=== PATIENT | female | born 1955 | race Caucasian/White ===

== ENCOUNTER 2016-09-14 17:12 | Emergency (ER) | payer MEDICARE, OTHER ==
--- NOTE | ~2016-09-14 | CR63 ---
[facility] A Service [facility] RADIOLOGY TEXT RESULTS PATIENT: STEPHENIE POLLARD LOCATION: SED : 55 UNIT #: [id number] AGE: [address]: Abdullahi Perez MD SEX: F ORDER DR: [id number] [place] [address] [id number] E MR#: [id number] Acc #: [id number] NAME: STEPHENIE POLLARD : 1955 SEX: F STUDY DATE/TIME: 09/14/2016 18:27 UNIT: SED ROOM: STUDY DESCRIPTION: CR Chest 2 View Attending Physician: Abdullahi Perez M.D. Ordering Physician: Abdullahi Perez M.D. Primary Care Physician: Earnest Alvares M.D. MEDICAL IMAGING REPORT This report is preliminary unless electronic signature is present. EXAM 2 views of the chest COMPARISON June 02, 2015 and June 23, 2014 as well as September 23, 2013. INDICATION 61-year-old female with dyspnea for 2 weeks. Diffuse swelling for 2 weeks. FINDINGS Surgical clips are again noted in the AP window. There is mild cardiomegaly. Multilevel anterior osteophyte formation of the thoracic spine. No pleural effusion or pneumothorax. There is diffuse pulmonary vascular congestion with grossly stable band-like opacity in the right lung base when allowing for differences in lung volumes. IMPRESSION 1. Cardiomegaly with mildly diffusely increased prominence of the pulmonary interstitium. This may be reflective of diminished lung volumes from comparison study but interstitial edema/vascular congestion cannot be excluded. Opacities are somewhat asymmetric in the right lung base but not particularly changed from June 02, 2015. These opacities are new from June 23, 2014. This could represent asymmetric edema or atelectasis or less likely developing pneumonia. Imaging followup to ensure resolution is recommended. 2. No pleural effusion. Dictated by... [facility] A Service [facility] RADIOLOGY TEXT RESULTS PATIENT: STEPHENIE POLLARD LOCATION: SED : 55 UNIT #: [id number] AGE: [address]: Abdullahi Perez MD SEX: F ORDER DR: Joe Billingsley M.D. THIS IS AN ELECTRONICALLY VERIFIED REPORT Joe Billingsley M.D. at 09/20/2016 7:36 AM BOAZ/anum TD: 09/15/2016 00:02 JOB #: [id number] MEDICAL IMAGING REPORT Page 1 of 1
[~2016-09-14 17:12] MED LIST: ADVAIR 100-501 EACH IH; ALBUTEROL0.83 MG/ML NEB; ALBUTEROL17 GM INH; ALPRAZOLAM PO; ALPRAZOLAM0.5 MG PO; ASPIRIN EC81 M1 PO; ATARAX PO; CLEOCIN PO; COUMADIN PO; COUMADIN4 MG PO; DEPAKOTE PO; ELIMITE60 GM TOP; HYDRALAZINE HCL10 MG PO; HYDROCODON-ACE1 EAC5; HYDROCODONE-APA1 T54 PO; LAMICTAL ODT (1 EAC1; LASIX20 MG PO; LEVETIRACETAM250 MG PO; LIORESAL10 MG PO; LIPITOR; LOPRESSOR PO; LORTAB 7.5-5001 TAB PO; MEDROL PO; OMEPRAZOLE20 M2 PO; PRAVACHOL20 MG PO; PREDNISONE PO; PREDNISONE10 MG/DOSE PO; PRILOSEC; PRIMPRO; PRIMPRO PO; PROAIR HFA8.5 GM IH; PROZAC PO; RESTORIL15 MG PO; RITALIN10 MG PO; SARAFEM20 MG PO; SYMBYAX 12-501 UDCAP PO; SYMBYAX 6-251 UDCAP PO; TOPAMAX25 MG PO; TOPAMAX50 MG PO; TOPROL XL 50 MG50 M1 PO; TOPROL XL PO; TRICOR PO; ULTRAM PO; XANAX XR0.5 MG PO; ZANAFLEX4 M1 PO; ZIAGEN300 M1; ZIPRASIDONE HCL40 MG PO; ZITHROMAX PO; ZYPREXA; ZYPREXA PO
[2016-09-14 18:04] LABS: BASOPHIL# 0.1 X10e3 (0-0.3); BASOPHIL% 1.1 % (0-2.5); DIFF IND NO; EOSINOPHIL# 0.1 X10e3 (0-0.7); EOSINOPHIL% 1.5 % (0.0-7.0); HEMATOCRIT 48.4 % (35.0-45.0); HEMOGLOBIN 15.8 gm/dL (12.0-16.0); LYMPHOCYTE# 1.5 X10e3 (1.0-3.5); LYMPHOCYTE% 19.4 % (17.0-45.0); MEAN CELL VOLUME 88.5 FL (83-96); MEAN CORPUSCULAR HEMOGLOBIN 28.9 PG (28-34); MEAN CORPUSCULAR HGB CONC 32.6 g/dL (30-36); MEAN PLATELET VOLUME 9.2 FL (6.5-11.5); MONOCYTE# 0.6 X10e3 (0-1.0); MONOCYTE% 7.9 % (3.0-12.0); NEUTROPHIL# 5.3 X10e3 (1.5-7.1); NEUTROPHIL% 70.1 % (40-75); PLATELET COUNT 200 X10e3 (140-420); RED BLOOD COUNT 5.47 X10e (3.90-5.30); RED CELL DISTRIBUTION WIDTH 15.7 % (11.0-15.5); WHITE BLOOD COUNT 7.6 X10e3 (4.0-10.5)
[2016-09-14 18:26] LABS: ALBUMIN SERUM 3.6 g/dL (3.5-5.0); BILIRUBIN, DIRECT 0.2 mg/dL (0.0-0.2); BILIRUBIN,INDIRECT 0.3 mg/dL (0.0-0.9); BILIRUBIN,TOTAL 0.5 mg/dL (0.2-2.0); BUN/CREATININE RATIO 16.25; CALCIUM SERUM 8.3 mg/dL (8.4-10.2); CREATININE SERUM 0.8 mg/dL (0.6-1.4); GLOM FILT RATE Estimated 79.6 mL/min (>60); POTASSIUM 3.3 mmol/L (3.5-5.1); PROTEIN TOTAL SERUM 6.7 g/dL (6.0-8.3)
[2016-09-14 18:27] LABS: POC - CKMB 1.5 ng/mL (0.0-7.9); POC - TROPONIN <0.05 ng/mL (<=0.05)
[2016-09-14 18:32] LABS: URINE SOURCE CLEAN CATCH
[2016-09-14 18:35] LABS: MICRO INDICATED? YES; URINE APPEARANCE CLEAR; URINE BILIRUBIN NEG (NEG); URINE BLOOD NEG (NEG); URINE COLOR YELLOW; URINE GLUCOSE 50 MG/DL (NORM); URINE KETONE NEG (NEG); URINE LEUKOCYTE ESTERASE NEG (NEG); URINE NITRATE POS (NEG); URINE PROTEIN 2+ (NEG)
[2016-09-14 18:38] LABS: CULTURE INDICATED? YES; URINE BACTERIA 1+ (NEG); URINE MUCUS PRESENT; URINE SQUAMOUS EPITHELIAL CELL OCCAS /[HPF]; URINE WBC 0-2 /[HPF] (0-5)
== END 2016-09-14 19:24 | disposition home or self-care (01) ==
LOC: SED 17:12
PROVIDERS: Emergency Medicine
DX: R60.0 Localized edema (principal); M79.662 Pain in left lower leg; M79.661 Pain in right lower leg; E72.20 Disorder of urea cycle metabolism, unspecified; N39.0 Urinary tract infection, site not specified; J44.9 Chronic obstructive pulmonary disease, unspecified; K21.9 Gastro-esophageal reflux disease without esophagitis; F31.9 Bipolar disorder, unspecified; F17.200 Nicotine dependence, unspecified, uncomplicated; Z90.49 Acquired absence of other specified parts of digestive tract; Z79.899 Other long term (current) drug therapy; Z88.2 Allergy status to sulfonamides; Z88.0 Allergy status to penicillin
CPT/HCPCS: 36415; 71020; 80048; 80076; 81003; 82140; 82553; 83880; 84484; 85025; 87086; 96374; 99284; J0696; J1940

== ENCOUNTER 2016-09-19 18:47 | Emergency (ER) | payer MEDICARE, OTHER ==
--- NOTE | ~2016-09-19 | EKG ---
PATIENT: STEPHENIE POLLARD UNIT #: [id number] Ventricular Rate: 61 BPM Atrial Rate: 61 BPM P-R Interval: 168 ms QRS Duration: 100 ms Q-T Interval: 490 ms QTC Calculation(Bezet): 493 ms P Klemme: 48 degrees Calculated R Klemme: 142 degrees Calculated T Klemme: 13 degrees Diagnosis Line: Normal sinus rhythm Diagnosis Line: Right axis deviation Diagnosis Line: Incomplete right bundle branch block Diagnosis Line: Possible Right ventricular hypertrophy Diagnosis Line: Prolonged QT Diagnosis Line: Abnormal ECG Diagnosis Line: When compared with ECG of 27-MAY-2015 17:14, Diagnosis Line: Questionable change in QRS axis Diagnosis Line: Criteria for Septal infarct are no longer Present Diagnosis Line: Nonspecific T wave abnormality now evident in Diagnosis Line: Inferior leads Diagnosis Line: T wave inversion more evident in Anterior leads Diagnosis Line: Confirmed by RENEA UMANA MD ([id number]) on Diagnosis Line: 09/29/2016 8:27:12 AM INTERPRETING MD: LYNDSAY WATKINS
--- NOTE | ~2016-09-19 | CR72 ---
[facility] A Service [facility][1] RADIOLOGY TEXT RESULTS PATIENT: STEPHENIE POLLARD LOCATION: SED : 55 UNIT #: [id number] AGE: [address]: Anton Falcon MD SEX: F ORDER DR: [id number] [place] [id number] E MR#: [id number] Acc #: [id number] NAME: STEPHENIE POLLARD : 1955 SEX: F STUDY DATE/TIME: 09/19/2016 19:37 UNIT: SED ROOM: STUDY DESCRIPTION: CR Chest Single View Portable Attending Physician: Anton Falcon M.D. Ordering Physician: Anton Falcon M.D. Primary Care Physician: Earnest Alvares M.D. MEDICAL IMAGING REPORT This report is preliminary unless electronic signature is present. EXAM Portable chest x-ray, 09/19/2016 HISTORY Short of air. FINDINGS AP radiograph of the chest is presented. Comparison 09/14/2016. Stable cardiac enlargement. Surgical clips superimposed over the upper left paracentral thorax unchanged. Pulmonary vasculature remains prominent more so in the right lung than left. Findings suggest some degree of vascular congestion. Interstitial prominence more so throughout the right lung than left persists. Some of this may represent chronic interstitial change. Interstitial pneumonitis with a left lung predominance could be considered. Asymmetric interstitial pulmonary edema could be considered. There are some patchier densities at the right lung base also unchanged. There is no dense airspace disease. There is no pleural effusion or pneumothorax and no suspicious nodule. Dictated by... Anton Dale M.D. THIS IS AN ELECTRONICALLY VERIFIED REPORT Anton Dale M.D. at 09/20/2016 8:14 AM HEMANT/anum TD: 09/20/2016 03:30 JOB #: [id number] [facility] A Service [facility][1] RADIOLOGY TEXT RESULTS PATIENT: STEPHENIE POLLARD LOCATION: SED : 55 UNIT #: [id number] AGE: [address]: Anton Falcon MD SEX: F ORDER DR: MEDICAL IMAGING REPORT Page 1 of 1
[2016-09-19 19:43] LABS: BASOPHIL# 0.1 X10e3 (0-0.3); BASOPHIL% 1.2 % (0-2.5); DIFF IND NO; EOSINOPHIL# 0.2 X10e3 (0-0.7); EOSINOPHIL% 2.1 % (0.0-7.0); HEMATOCRIT 47.5 % (35.0-45.0); HEMOGLOBIN 15.6 gm/dL (12.0-16.0); LYMPHOCYTE# 2.3 X10e3 (1.0-3.5); LYMPHOCYTE% 26.8 % (17.0-45.0); MEAN CELL VOLUME 88.4 FL (83-96); MEAN CORPUSCULAR HEMOGLOBIN 29.1 PG (28-34); MEAN CORPUSCULAR HGB CONC 32.9 g/dL (30-36); MEAN PLATELET VOLUME 9.3 FL (6.5-11.5); MONOCYTE# 1.1 X10e3 (0-1.0); MONOCYTE% 12.1 % (3.0-12.0); NEUTROPHIL% 57.8 % (40-75); PLATELET COUNT 196 X10e3 (140-420); RED BLOOD COUNT 5.37 X10e (3.90-5.30); RED CELL DISTRIBUTION WIDTH 15.9 % (11.0-15.5); WHITE BLOOD COUNT 8.7 X10e3 (4.0-10.5)
[2016-09-19 19:47] LABS: INR 1.2; PROTHROMBIN TIME (PATIENT) 13.7 SECONDS (9.5-12.4)
[2016-09-19 19:47] LABS: URINE SOURCE CLEAN CATCH
[2016-09-19 19:49] LABS: URINE APPEARANCE CLEAR; URINE BILIRUBIN NEG (NEG); URINE BLOOD NEG (NEG); URINE COLOR YELLOW; URINE GLUCOSE NEG (NORM); URINE KETONE NEG (NEG); URINE LEUKOCYTE ESTERASE NEG (NEG); URINE NITRATE NEG (NEG); URINE PH 7.5 (5-8); URINE PROTEIN 2+ (NEG); URINE UROBILINOGEN 0.2 MG/DL (NORM)
[2016-09-19 19:52] LABS: MICRO INDICATED? NO
[2016-09-19 19:54] LABS: PARTIAL THROMBOPLASTIN TIME 26.7 SECONDS (25.6-38.1)
[2016-09-19 19:55] LABS: ALBUMIN SERUM 3.6 g/dL (3.5-5.0); BILIRUBIN, DIRECT 0.2 mg/dL (0.0-0.2); BILIRUBIN,INDIRECT 0.2 mg/dL (0.0-0.9); BILIRUBIN,TOTAL 0.4 mg/dL (0.2-2.0); BUN/CREATININE RATIO 18.75; CALCIUM SERUM 8.3 mg/dL (8.4-10.2); CREATININE SERUM 0.8 mg/dL (0.6-1.4); GLOM FILT RATE Estimated 79.6 mL/min (>60); POTASSIUM 3.6 mmol/L (3.5-5.1); PROTEIN TOTAL SERUM 6.7 g/dL (6.0-8.3)
[2016-09-19 19:57] LABS: POC - CKMB 2.5 ng/mL (0.0-7.9); POC - TROPONIN <0.05 ng/mL (<=0.05)
== END 2016-09-19 21:28 | disposition home or self-care (01) ==
LOC: SED 18:47
PROVIDERS: Emergency Medicine
DX: I50.1 Left ventricular failure, unspecified (principal); J44.9 Chronic obstructive pulmonary disease, unspecified; F17.200 Nicotine dependence, unspecified, uncomplicated
CPT/HCPCS: 36415; 71010; 80048; 80076; 81003; 82553; 83880; 84484; 85025; 85610; 85730; 93005; 94640; 99285; J1940

== ENCOUNTER → 2016-10-01 | Outpatient (CLI) | payer MEDICARE, OTHER ==
--- NOTE | ~2016-10-01 | MY11 ---
[facility] A Service [facility] RADIOLOGY TEXT RESULTS PATIENT: STEPHENIE POLLARD LOCATION: [facility] : 55 UNIT #: [id number] AGE: [address]: Earnest Alvares MD SEX: F ORDER DR: [id number] [address] [address] [id number] O MR#: [id number] Acc #: [id number] NAME: STEPHENIE POLLARD : 1955 SEX: F STUDY DATE/TIME: 10/01/2016 14:57 UNIT: [facility] ROOM: STUDY DESCRIPTION: MY Mammogram Screening Dig Ozzie Attending Physician: Earnest Alvares M.D. Referring Physician: Earnest Alvares M.D. Ordering Physician: Earnest Alvares M.D. Primary Care Physician: Earnest Alvares M.D. MEDICAL IMAGING REPORT This report is preliminary unless electronic signature is present. EXAM Digital screening mammogram 10/01/2016 HISTORY 61-year-old woman, positive family history, maternal aunt. Interim weight loss. Annual screen. COMPARISON STUDIES Comparison mammograms date to 11/21/2006 with most recent screening comparison 04/16/2015 FINDINGS Digital imaging of each breast was completed utilizing screening protocol. Review includes FDA-approved CAD device. Breast parenchyma is heterogeneously dense with residual opacities bilaterally. Mild dominance is again noted in the left breast. There is no interval occurring mass. There are no suspicious microcalcifications and no architectural deformity. IMPRESSION Negative mammogram. Annual screening recommended. BIRADS 1 Patients over the age of 40 are entered into a reminder system with target due date for the next mammogram. A result letter will also be sent to the patient. BIRADS: 1 - Negative Dictated by... Bobby Zhao M.D. THIS IS AN ELECTRONICALLY VERIFIED REPORT Bobby Zhao M.D. at 10/04/2016 8:06 AM SARAH/julio [facility] A Service [facility] RADIOLOGY TEXT RESULTS PATIENT: STEPHENIE POLLARD LOCATION: [facility] #: [id number] : 55 UNIT #: [id number] AGE: [address]: Earnest Alvares MD SEX: F ORDER DR: TD: 10/01/2016 18:49 JOB #: [id number] MEDICAL IMAGING REPORT Page 1 of 1
== END | disposition home or self-care (01) ==
LOC: SMAM 14:23
DX: Z12.31 Encounter for screening mammogram for malignant neoplasm of breast (principal); Z80.3 Family history of malignant neoplasm of breast
CPT/HCPCS: G0202

== ENCOUNTER → 2016-10-15 | Outpatient (CLI) | payer MEDICARE, OTHER | END | disposition home or self-care (01) | LOC: CECH 10:22 | DX: Z72.0 Tobacco use (principal); I08.1 Rheumatic disorders of both mitral and tricuspid valves; I36.1 Nonrheumatic tricuspid (valve) insufficiency; I50.9 Heart failure, unspecified; J44.9 Chronic obstructive pulmonary disease, unspecified | CPT/HCPCS: 93306 ==

== ENCOUNTER → 2016-11-04 | Outpatient (CLI) | payer MEDICARE, OTHER ==
--- NOTE | ~2016-11-04 | CT16 ---
[facility] A Service [facility] RADIOLOGY TEXT RESULTS PATIENT: STEPHENIE POLLARD LOCATION: [facility] : 55 UNIT #: [id number] AGE: [address]: MICHELLE SPRING MD SEX: F ORDER DR: [id number] [facility] [address] [place], [place] [address] [id number] O MR#: [id number] Acc #: [id number] NAME: STEPHENIE POLLARD : 1955 SEX: F STUDY DATE/TIME: 11/04/2016 10:53 UNIT: [facility] ROOM: STUDY DESCRIPTION: CT Angio Chest for PE Attending Physician: Michelle Spring M.D. Referring Physician: Michelle Spring M.D. Primary Care Physician: Earnest Alvares M.D. MEDICAL IMAGING REPORT This report is preliminary unless electronic signature is present EXAM CT angiogram of the chest for pulmonary embolism 11/04/2016 1053 hours HISTORY Right-sided chest pain and shortness of air for 2 months. History of heart ablation, CHF, COPD and prior lung carcinoma. History of abnormality of right ventricle of heart. COMPARISON CT chest 05/27/[address] angiographic images were obtained from the thoracic inlet through the adrenal glands. 3-D sagittal and coronal reconstructions were performed. Contrast was Isovue-370 100 mL IV. Total exam DLP 803 mGy-cm. This CT exam was performed with one or more of the following radiation dose reduction techniques: automatic control, adjustment of mA and/or kV according to patient size, and iterative reconstruction. FINDINGS Images through the thoracic inlet demonstrate no thyroid lesion or adenopathy. Images through the chest demonstrate excellent opacification of the pulmonary arteries. The pulmonary arteries are enlarged with main pulmonary artery 4.2 cm previously 3.8 cm in 05/27/2015. Right pulmonary artery measures about 3 cm previously 2.7 cm. Left pulmonary artery measures 2.5 cm previously 2.5 cm. There are no filling defects to suggest the presence of acute pulmonary emboli. There is mild corkscrewing over the peripheral vessels and there is enlargement of the right ventricle compared to the left ventricle suggesting pulmonary arterial hypertension. RV to LV ratio is 5.63/3.40, equals 1.65. [facility] A Service of [facility] RADIOLOGY TEXT RESULTS PATIENT: STEPHENIE POLLARD LOCATION: [facility] : 55 UNIT #: [id number] AGE: [address]: MICHELLE SPRING MD SEX: F ORDER DR: is trace pericardial fluid. There is no pleural fluid. The lung window images demonstrate lobectomy change on the left. There is underlying emphysematous change. There is no acute pulmonary density or nodule. Limited views through the upper abdomen are negative. IMPRESSION 1. There is no evidence of pulmonary embolism. The main, right and left pulmonary arteries enlarged are enlarged. The right ventricle is enlarged relative to the left and there is suggestion of mild corkscrewing of the peripheral pulmonary arteries in the lungs suggesting pulmonary arterial hypertension. Diameter of the pulmonary arteries has increased from 05/27/2015. 2. Normal aorta. 3. There is postop lobectomy change on the left. There is no acute pulmonary or pleural finding. STAT * RESULT Dictated by... Christel Christianson M.D. THIS IS AN ELECTRONICALLY VERIFIED REPORT Christel Christianson M.D. at 11/04/2016 2:31 PM JUAN/jaleesa TD: 11/04/2016 12:40 JOB #: [id number] MEDICAL IMAGING REPORT Page 1 of 1 COPY
[2016-11-04 10:50] LABS: POC - GFR >60.0 mL/min (>60)
== END | disposition home or self-care (01) ==
LOC: CCAT 10:19
PROVIDERS: Internal Medicine Interventional Cardiology
DX: Q20.8 Other congenital malformations of cardiac chambers and connections (principal); I77.89 Other specified disorders of arteries and arterioles; Z90.2 Acquired absence of lung [part of]
CPT/HCPCS: 71275; 82565; Q9967